=== PATIENT | female | born 1985 | race African-American/Black ===

== ENCOUNTER 2016-10-28 18:36 | Emergency (ER) | payer OTHER ==
[2016-10-28 18:46] VITALS: BP 142/78; PULSE 83; TEMP 98; BMI 27.3
[2016-10-28] MEDS ORDERED: AMOX TR/POT CLAV 875MG/125MG TABLETS (FP) PO STA (19:45)
--- NOTE | 2016-10-28 19:51 | PDOC ---
History of Present Illness - General Chief Complaint: Ear Problem Stated Complaint: EAR PROBLEM Time Seen by Provider: 10/28/16 19:39 History Source: Patient Exam Limitations: No Limitations - History of Present Illness Initial Comments: 10/28/16 19:46 30 yr female with c/o right ear pain for 2 days no fever. Past History - Past Medical History Allergies/Adverse Reactions: Allergies Allergy/AdvReac Type Severity Reaction Status Date / Time No Known Allergies Allergy Verified 10/28/16 18:43 Home Medications: Ambulatory Orders Nitrofurantoin Monohyd/M-Cryst [Macrobid -] 100 mg PO BID #14 capsule 02/25/16 Amoxicillin/Potassium Clav [Augmentin 875-125 Tablet] 1 each PO BID #20 tablet 10/28/16 Other medical history: none - Psycho/Social/Smoking Cessation Hx Anxiety: No Suicidal Ideation: No Smoking History: Never smoked Have you smoked in the past 12 months: No Number of Cigarettes Smoked Daily: 0 Information on smoking cessation initiated: No Hx Alcohol Use: No Drug/Substance Use Hx: No Substance Use Type: None Review of Systems - Review of Systems Able to Perform ROS?: Yes Is the patient limited Indonesian proficient: No Constitutional: No: Symptoms Reported HEENTM: Yes: See HPI *Physical Exam - Vital Signs Last Vital Signs Temp Pulse Resp BP Pulse Ox 98.0 F 83 18 142/78 100 10/28/16 18:44 10/28/16 18:44 10/28/16 18:44 10/28/16 18:44 10/28/16 18:44 - Physical Exam General Appearance: Yes: Nourished, Appropriately Dressed HEENT: positive: EOMI, JOHN, Pharynx Normal, TM Bulging, TM Dull (right , no preauricular tenderness, mild swelling along the jaw line, FROM of the jaw), TM Erythema Neck: positive: Supple Respiratory/Chest: positive: Lungs Clear, Normal Breath Sounds Cardiovascular: positive: Regular Rhythm, Regular Rate Gastrointestinal/Abdominal: positive: Normal Bowel Sounds, Soft Musculoskeletal: positive: Normal Inspection Extremity: positive: Normal Capillary Refill, Normal Inspection, Normal Range of Motion Integumentary: positive: Normal Color, Dry, Warm Neurologic: positive: Fully Oriented, Alert, Normal Mood/Affect, Normal Response , Motor Strength 5/5 Medical Decision Making - Medical Decision Making 10/28/16 19:48 cc: right earache no fever, no trismus no dental pain or trauma right ear with narrowing of canal, erythetmatous swelling inside canal TM is dull will treat for AOM no evidence of mastoiditits strict follow up in 48hrs if no improvement pt is to return to ER, pt understands the plan of care all questions asked and answered 10/28/16 19:49 10/28/16 19:49 *DC/Admit/Observation/Transfer Diagnosis at time of Disposition: Otitis media Qualifiers: Otitis media type: unspecified Laterality: right Chronicity: unspecified Qualified Code(s): H66.91 - Otitis media, unspecified, right ear - Discharge Dispostion Disposition: HOME Condition at time of disposition: Good - Prescriptions Prescriptions: Amoxicillin/Potassium Clav [Augmentin 875-125 Tablet] 1 each PO BID #20 tablet - Referrals Referrals: Kendall Lazcano MD [Staff Physician] - - Patient Instructions Additional Instructions: take the Augmentin as prescribed take motrin for pain as needed apply warm moist compresses to the area of pain every 2hrs fro 10-15 minutes return to ER in 48hrs if you are not feeling any better return if any fever, chills increased pain or you are unable to open your mouth follow with ENT on Monday for follow up
== END 2016-10-28 20:22 | disposition home or self-care (01) ==
LOC: JERFT 18:36
DX: H66.91 Otitis media, unspecified, right ear (principal)
CPT/HCPCS: 99281-25

== ENCOUNTER 2016-10-30 10:12 | Emergency (ER) | payer OTHER ==
[2016-10-30 10:32] VITALS: BP 149/90; PULSE 71; TEMP 98; BMI 27.3
[2016-10-30] MEDS ORDERED: KETOROLAC TROMETHAMINE 60 MG/2 ML VIAL ONE (11:47)
[2016-10-30] MEDS ORDERED: KETOROLAC TROMETHAMINE 60 MG/2 ML VIAL IM ONE (11:47)
--- NOTE | 2016-10-30 12:18 | PDOC ---
*Physical Exam - Vital Signs Last Vital Signs Temp Pulse Resp BP Pulse Ox 98 F 71 19 149/90 98 10/30/16 10:23 10/30/16 10:23 10/30/16 10:23 10/30/16 10:23 10/30/16 10:23 - Physical Exam General Appearance: Yes: Appropriately Dressed. No: Apparent Distress HEENT: positive: Tonsillar Erythema, Nasal Congestion, TM Bulging, TM Dull. negative: TM Erythema Neck: positive: Supple, Lymphadenopathy (R). negative: Tender, Rigid, Lymphadenopathy (L) Respiratory/Chest: positive: Lungs Clear Cardiovascular: negative: Regular Rhythm, Regular Rate Lymphatic: positive: Adenopathy Integumentary: positive: Other (STS to right canal with tenderness to speculum insertion, outter ear = WNL with pain at traction and tragus Pull) ED Treatment Course - Medications Given in the ED: ED Medications Discontinued Medications Generic Name Dose Route Start Last Admin Trade Name Freq PRN Reason Stop Dose Admin Ketorolac Tromethamine 60 mg 10/30/16 11:47 10/30/16 11:49 Toradol Injection - IM 10/30/16 11:48 60 mg ONCE ONE Administration Medical Decision Making - Medical Decision Making 10/30/16 12:14 toradol given in ED; will add Ear drops to augmentin; will suggest close follow up with ENT on 2-3 days, pt will call For appt *DC/Admit/Observation/Transfer Diagnosis at time of Disposition: Otitis externa Qualifiers: Otitis externa type: diffuse Laterality: right Chronicity: acute Qualified Code (s): H60.311 - Diffuse otitis externa, right ear - Discharge Dispostion Disposition: HOME Condition at time of disposition: Stable Admit: No - Referrals Referrals: Scar Ruggiero [Primary Care Provider] - Kendall Lazcano MD [Staff Physician] - - Patient Instructions Additional Instructions: Please call and see Dr Lazcano / ENT MD, in 2-3 days for further evaluation; motrin for pain; add ear drops; continue augmentin - Post Discharge Activity Work/School Note: Back to Work
== END 2016-10-30 12:26 | disposition home or self-care (01) ==
LOC: JER 10:12 → JERFT 10:12
PROC: 3E0233Z Introduction of Anti-inflammatory into Muscle, Percutaneous Approach (ICD-10-PCS; principal; 2016-10-30)
DX: H60.311 Diffuse otitis externa, right ear (principal)
CPT/HCPCS: 96372; 99281-25